=== PATIENT | female | born 1960 | race Two or more races ===

== ENCOUNTER 2018-06-05 09:02 | Emergency (ER) | payer SELFPAY ==
[~2018-06-05] VITALS: Ht 152.4 cm; Wt 92.7 kg
[2018-06-05 09:12] VITALS: BP 133/75
[2018-06-05] MEDS ORDERED: KETOROLAC TROMETH 60MG/2ML VIAL IM ONE (11:45)
[2018-06-05] MEDS ORDERED: diphenhdrAMINE HCL 25 MG CAP PO ONE (11:45)
[2018-06-05] MEDS ORDERED: ONDANSETRON ODT 4 MG TAB PO ONE (11:45)
== END 2018-06-05 13:22 | disposition home or self-care (01) ==
LOC: ER 09:02
DX: R51 Headache (principal)
CPT/HCPCS: 70450; 96372; 99284; J1885; Q0162

== ENCOUNTER 2021-04-23 10:15 | Inpatient (IN) | payer MEDICAID ==
[~2021-04-23] VITALS: Ht 165.1 cm; Wt 77.5 kg
[2021-04-23] MEDS ORDERED: AZITHROMYCIN 500MG/ 250ML 250 ML IV ONE (10:45)
[2021-04-23] MEDS ORDERED: ASCORBIC ACID 500 MG TAB PO ONE (10:45)
[2021-04-23] MEDS ORDERED: ZINC SULFATE 220mg CAP or TAB PO ONE (10:45)
[2021-04-23] MEDS ORDERED: REMDESIVIR PER PHARMACY 0 ML IV SCH ×2 (10:45→12:45)
[2021-04-23] MEDS ORDERED: methylPREDNISolone SOD SUCC 125 MG/2 ML VL IV ONE (10:45)
[2021-04-23] MEDS ORDERED: CHOLECALCIFEROL (VITD3) 2,000 UNIT CAP/TAB PO ONE (10:45)
[2021-04-23] MEDS ORDERED: ACETAMINOPHEN 325 MG TAB PO ONE (11:00)
[2021-04-23 11:10] LABS: Basophils # (auto) 0 10 ^3/uL (0-0.2); Basophils % (auto) 0.2 % (0.0-2.0); Eosinophils # (auto) 0 10 ^3/uL (0-0.8); Hematocrit 42.3 % (36.0-46.0); Hemoglobin 14.4 g/dL (12.2-16.2); Lymphocytes # (auto) 1.3 10 ^3/uL (0.4-5.4); Mean Corpuscular Volume 88.1 fL (80.0-100.0); Monocytes # (auto) 0.6 10 ^3/uL (0-1.3); Neutrophils # (auto) 7.3 10 ^3/uL (1.6-8.6); Neutrophils % (auto) 78.8 % (37.0-80.0); Nucleated Red Blood Cells % 0.1 %; Red Cell Distribution Width 13.1 % (11.8-14.3); White Blood Cell 9.2 10^3/uL (4.4-10.8)
[2021-04-23 11:21] LABS: Potassium 4.2 mmol/L (3.5-5.1)
[2021-04-23 11:33] LABS: Albumin 2.3 g/dL (3.4-5.0); BUN/Creatinine Ratio 31.3; Bilirubin, Total 0.7 mg/dL (0.2-1.0); CRP High Sensitivity 15.4 mg/dL (< 0.3); Calcium 8.1 mg/dL (8.5-10.1); Total Protein 7.6 g/dL (6.4-8.2)
[2021-04-23 12:17] LABS: Urine Bacteria FEW /hpf (None Seen); Urine Blood TRACE /uL (Negative); Urine Hyaline Cast FEW /lpf (0 - 2); Urine Mucus FEW (None Seen); Urine Specific Gravity 1.021 (1.001-1.035); Urine WBC 7 /hpf (0 - 5)
[2021-04-23] MEDS ORDERED: ATORVASTATIN 20 MG TAB PO ONE (13:15)
[2021-04-23] MEDS ORDERED: ENOXAPARIN SOD 100 MG/1 ML SYRINGE SC ONE (13:15)
[2021-04-23] MEDS ORDERED: NITROGLYCERIN 0.4 MG SL TAB SL PRN (13:15)
[2021-04-23] MEDS ORDERED: METOCLOPRAMIDE HCL 5MG/ml INJ 2ml VIAL IV PRN (13:15)
[2021-04-23] MEDS ORDERED: LORazepam 0.5 MG TAB PO PRN (13:15)
[2021-04-23] MEDS ORDERED: DEXTROSE (50%) 50ML SYRG IV PRN (13:15)
[2021-04-23] MEDS ORDERED: ALUM & MAG HYDROX-SIMETH LIQ(MAALOX) 30 ML PO PRN (13:15)
[2021-04-23] MEDS ORDERED: ACETAMINOPHEN 325 MG TAB PO PRN (13:15)
[2021-04-23] MEDS ORDERED: CEFEPIME 1 GM in SODIUM CHL 0.9% 50 ML IV ONE (13:15)
[2021-04-23] MEDS ORDERED: SODIUM CHLORIDE 0.9% 250 ML IV ONE (13:15)
[2021-04-23] MEDS ORDERED: ACETAMINOPHEN 500 MG TAB PO PRN (13:15)
[2021-04-23] MEDS ORDERED: DOCUSATE SOD 100 MG CAP PO PRN (13:15)
[2021-04-23] MEDS ORDERED: MORPHINE SULFATE INJECTION 2 MG/ML SYRG IV PRN ×2 (13:15)
[2021-04-23] MEDS ORDERED: HYDROcodone-ACET 5/325MG TAB PO PRN (13:15)
[2021-04-23] MEDS ORDERED: ALBUMIN 25% 100 ML IV ONE (13:45)
[2021-04-23 14:11] LABS: Basophils # (auto) 0 10 ^3/uL (0-0.2); Basophils % (auto) 0.1 % (0.0-2.0); Eosinophils # (auto) 0 10 ^3/uL (0-0.8); Hematocrit 42.8 % (36.0-46.0); Hemoglobin 14.8 g/dL (12.2-16.2); Lymphocytes # (auto) 1.2 10 ^3/uL (0.4-5.4); Lymphocytes % (auto) 12.7 % (10.0-50.0); Mean Corpuscular Hemoglobin 30.4 pg (28.0-32.0); Mean Corpuscular Hgb Conc. 34.7 g/dL (32.0-36.0); Mean Corpuscular Volume 87.9 fL (80.0-100.0); Monocytes # (auto) 0.5 10 ^3/uL (0-1.3); Monocytes % (auto) 5.2 % (0.0-12.0); Neutrophils # (auto) 7.9 10 ^3/uL (1.6-8.6); Nucleated Red Blood Cells % 0.1 %; Red Blood Cells 4.87 10^6/uL (4.0-5.20); White Blood Cell 9.7 10^3/uL (4.4-10.8)
[2021-04-23 14:27] VITALS: BP 102/63
[2021-04-23 14:35] LABS: Albumin 2.3 g/dL (3.4-5.0); Calcium 8.2 mg/dL (8.5-10.1); Magnesium 2.8 mg/dL (1.6-2.6); Potassium 4.2 mmol/L (3.5-5.1)
[2021-04-23 14:45] LABS: BUN/Creatinine Ratio 31.6; Bilirubin, Total 0.7 mg/dL (0.2-1.0); CRP High Sensitivity 15.4 mg/dL (< 0.3); Total Protein 7.8 g/dL (6.4-8.2)
[2021-04-23 14:46] LABS: Thyroid Stimulating Hormone 0.21 uIU/mL (0.358-3.74)
[2021-04-23] MEDS: SODIUM CHLORIDE 0.9% 1,000 ML IV SCH (15:12)
[2021-04-23] MEDS ORDERED: REMDESIVIR 200 MG in NS 210ml LOADING DOSE ADULT IV ONE (16:00)
[2021-04-23] MEDS: IVERMECTIN 3 MG TAB PO SCH (16:17)
[2021-04-23] MEDS: InsuLIN REG 1unit/0.01ml Soln (100units/ml) SC SCH ×2 (16:40→21:22)
[2021-04-23] MEDS: ACCU-CHEK COMFORT CURVE STRIP VI SCH ×2 (16:43→21:23)
[2021-04-23] MEDS: IPRATROPIUM BROMIDE HFA AER IN SCH ×2 (18:57→22:25)
[2021-04-23] MEDS: BUDESONIDE (INHALATION) 180 MCG IH IN SCH ×2 (18:57→20:42)
[2021-04-23] MEDS: CEFEPIME 1 GM in SODIUM CHL 0.9% 50 ML IV SCH (21:11)
[2021-04-23] MEDS: FAMOTIDINE (10MG/ML) 2ML VL IV SCH (21:21)
[2021-04-23] MEDS: FLORASTOR (S. BOULARDII) 250 MG CAP PO SCH (21:21)
[2021-04-23] MEDS: ALBUTEROL SULF HFA 90MCG INH 200DOSE IN PRN (21:26)
[2021-04-24] MEDS: ENOXAPARIN SOD 100 MG/1 ML SYRINGE SC SCH ×2 (05:41→18:27)
[2021-04-24] MEDS: SODIUM CHLORIDE 0.9% 1,000 ML IV SCH ×2 (05:41→22:38)
[2021-04-24] MEDS: InsuLIN REG 1unit/0.01ml Soln (100units/ml) SC SCH ×4 (05:54→22:19)
[2021-04-24] MEDS: ACCU-CHEK COMFORT CURVE STRIP VI SCH ×4 (05:59→22:16)
[2021-04-24] MEDS: CEFEPIME 1 GM in SODIUM CHL 0.9% 50 ML IV SCH (06:00)
[2021-04-24] MEDS: IPRATROPIUM BROMIDE HFA AER IN SCH ×2 (06:00→06:20)
[2021-04-24 06:20] VITALS: BP 115/56
[2021-04-24] MEDS: BUDESONIDE (INHALATION) 180 MCG IH IN SCH ×2 (06:20→22:56)
[2021-04-24 09:15] LABS: Urine Bacteria NONE SEEN /hpf (None Seen); Urine Blood 2+ /uL (Negative); Urine Mucus FEW (None Seen); Urine Specific Gravity 1.026 (1.001-1.035); Urine WBC 13 /hpf (0 - 5)
[2021-04-24 09:30] LABS: Amphetamine Screen, Urine NEGATIVE (NEGATIVE); Barbiturate Scree,Urine NEGATIVE (NEGATIVE); Benzodiazephine Screen, Urine NEGATIVE (NEGATIVE); Cannabinoid Screen, Urine NEGATIVE (NEGATIVE); Cocaine Screen, Urine NEGATIVE (NEGATIVE); Opiate Scree,Urine NEGATIVE (NEGATIVE); Phencyclidine Screen, Urine NEGATIVE (NEGATIVE)
[2021-04-24 09:41] LABS: Basophils # (auto) 0 10 ^3/uL (0-0.2); Basophils % (auto) 0.1 % (0.0-2.0); Eosinophils # (auto) 0 10 ^3/uL (0-0.8); Hematocrit 40.5 % (36.0-46.0); Hemoglobin 13.5 g/dL (12.2-16.2); Lymphocytes # (auto) 1.4 10 ^3/uL (0.4-5.4); Lymphocytes % (auto) 11.2 % (10.0-50.0); Mean Corpuscular Hemoglobin 29.6 pg (28.0-32.0); Mean Corpuscular Hgb Conc. 33.4 g/dL (32.0-36.0); Mean Corpuscular Volume 88.8 fL (80.0-100.0); Monocytes % (auto) 7.6 % (0.0-12.0); Neutrophils # (auto) 10.4 10 ^3/uL (1.6-8.6); Neutrophils % (auto) 81.1 % (37.0-80.0); Nucleated Red Blood Cells % 0.1 %; Red Blood Cells 4.56 10^6/uL (4.0-5.20); White Blood Cell 12.8 10^3/uL (4.4-10.8)
[2021-04-24] MEDS: FUROSEMIDE 20 MG/2 ML VIAL IV SCH ×2 (09:49→18:27)
[2021-04-24 09:55] LABS: Albumin 2.4 g/dL (3.4-5.0); Calcium 8.1 mg/dL (8.5-10.1); Potassium 3.8 mmol/L (3.5-5.1); Uric Acid 3.7 mg/dL (2.6-6.0)
[2021-04-24 10:01] LABS: BUN/Creatinine Ratio 43.8; Bilirubin, Total 0.7 mg/dL (0.2-1.0); Total Protein 7.1 g/dL (6.4-8.2)
[2021-04-24] MEDS: ALBUTEROL SULF HFA 90MCG INH 200DOSE IN PRN ×2 (10:15→22:56)
[2021-04-24] MEDS: DexAMETHasone SOD PHOS 10MG/1ML VIAL INJ IV SCH (10:40)
[2021-04-24] MEDS: ZINC SULFATE 220mg CAP or TAB PO SCH (10:41)
[2021-04-24] MEDS: ASPirin 81 mg TAB PO SCH (10:41)
[2021-04-24] MEDS: FAMOTIDINE (10MG/ML) 2ML VL IV SCH ×2 (10:41→22:15)
[2021-04-24] MEDS: CHOLECALCIFEROL (VITD3) 2,000 UNIT CAP/TAB PO SCH (10:42)
[2021-04-24] MEDS: ASCORBIC ACID 1,000 MG TAB PO SCH (10:42)
[2021-04-24] MEDS: IVERMECTIN 3 MG TAB PO SCH (10:42)
[2021-04-24] MEDS: FLORASTOR (S. BOULARDII) 250 MG CAP PO SCH ×2 (10:42→22:16)
[2021-04-24 11:00] VITALS: BP 109/68
[2021-04-24] MEDS ORDERED: cefTRIAXone 1GM/50ML D5W 50 ML IV ONE (11:45)
[2021-04-24] MEDS ORDERED: AZITHROMYCIN 500MG/ 250ML 250 ML IV ONE (13:00)
[2021-04-24] MEDS ORDERED: IPRATROPIUM BROMIDE HFA AER IN PRN (15:15)
[2021-04-24] MEDS: REMDESIVIR 100mg 100 MG in SODIUM CHL 0.9% 230 ML IV SCH (15:15)
[2021-04-24 18:05] VITALS: BP 122/58
[2021-04-24 22:10] VITALS: BP 127/63
[2021-04-24] MEDS: ATORVASTATIN 20 MG TAB PO SCH (22:16)
[2021-04-25 01:43] VITALS: BP 133/63
[2021-04-25] MEDS: FUROSEMIDE 20 MG/2 ML VIAL IV SCH ×2 (06:17→18:01)
[2021-04-25] MEDS: ENOXAPARIN SOD 100 MG/1 ML SYRINGE SC SCH ×2 (06:17→18:01)
[2021-04-25 06:25] VITALS: BP 140/56
[2021-04-25] MEDS: ALBUTEROL SULF HFA 90MCG INH 200DOSE IN PRN (07:07)
[2021-04-25] MEDS: BUDESONIDE (INHALATION) 180 MCG IH IN SCH (07:08)
[2021-04-25] MEDS: ACCU-CHEK COMFORT CURVE STRIP VI SCH ×4 (07:35→21:54)
[2021-04-25] MEDS: InsuLIN REG 1unit/0.01ml Soln (100units/ml) SC SCH ×4 (07:37→21:55)
[2021-04-25] MEDS: cefTRIAXone 1GM/50ML D5W 50 ML IV SCH (07:53)
[2021-04-25] MEDS: DexAMETHasone SOD PHOS 10MG/1ML VIAL INJ IV SCH (07:54)
[2021-04-25] MEDS: CHOLECALCIFEROL (VITD3) 2,000 UNIT CAP/TAB PO SCH (07:54)
[2021-04-25] MEDS: ZINC SULFATE 220mg CAP or TAB PO SCH (07:54)
[2021-04-25] MEDS: ASCORBIC ACID 1,000 MG TAB PO SCH (07:54)
[2021-04-25] MEDS: ASPirin 81 mg TAB PO SCH (07:54)
[2021-04-25] MEDS: FAMOTIDINE (10MG/ML) 2ML VL IV SCH ×2 (07:55→21:54)
[2021-04-25] MEDS: IVERMECTIN 3 MG TAB PO SCH (07:55)
[2021-04-25] MEDS: FLORASTOR (S. BOULARDII) 250 MG CAP PO SCH ×2 (07:56→10:59)
[2021-04-25 10:13] VITALS: BP 149/71
[2021-04-25] MEDS: AZITHROMYCIN 500MG/ 250ML 250 ML IV SCH (10:59)
[2021-04-25 13:57] VITALS: BP 135/64
[2021-04-25] MEDS: SODIUM CHLORIDE 0.9% 1,000 ML IV SCH (15:00)
[2021-04-25] MEDS: REMDESIVIR 100mg 100 MG in SODIUM CHL 0.9% 230 ML IV SCH (15:03)
[2021-04-25 18:00] VITALS: BP 149/67
[2021-04-25] MEDS: ATORVASTATIN 20 MG TAB PO SCH (21:54)
[2021-04-25 22:23] VITALS: BP 150/76
[2021-04-26] VITALS (7 sets, daily range): BP systolic 135–140; BP diastolic 58–70
[2021-04-26] MEDS: BUDESONIDE (INHALATION) 180 MCG IH IN SCH ×3 (00:57→07:43)
[2021-04-26] MEDS: FUROSEMIDE 20 MG/2 ML VIAL IV SCH ×2 (06:32→18:39)
[2021-04-26] MEDS: ACCU-CHEK COMFORT CURVE STRIP VI SCH ×4 (06:32→21:36)
[2021-04-26] MEDS: ENOXAPARIN SOD 100 MG/1 ML SYRINGE SC SCH ×2 (06:32→18:39)
[2021-04-26] MEDS: InsuLIN REG 1unit/0.01ml Soln (100units/ml) SC SCH ×4 (06:33→21:53)
[2021-04-26 06:59] LABS: Calcium 7.5 mg/dL (8.5-10.1)
[2021-04-26 07:06] LABS: Albumin 2.1 g/dL (3.4-5.0); BUN/Creatinine Ratio 38.6; Bilirubin, Total 0.9 mg/dL (0.2-1.0); Total Protein 6.3 g/dL (6.4-8.2)
[2021-04-26] MEDS: ALBUTEROL SULF HFA 90MCG INH 200DOSE IN PRN ×3 (07:29→19:10)
[2021-04-26] MEDS: SODIUM CHLORIDE 0.9% 1,000 ML IV SCH (08:24)
[2021-04-26] MEDS: cefTRIAXone 1GM/50ML D5W 50 ML IV SCH (08:45)
[2021-04-26] MEDS: CHOLECALCIFEROL (VITD3) 2,000 UNIT CAP/TAB PO SCH (10:54)
[2021-04-26] MEDS: IVERMECTIN 3 MG TAB PO SCH (10:54)
[2021-04-26] MEDS: ASPirin 81 mg TAB PO SCH (10:54)
[2021-04-26] MEDS: FLORASTOR (S. BOULARDII) 250 MG CAP PO SCH ×2 (10:54→21:52)
[2021-04-26] MEDS: AZITHROMYCIN 500MG/ 250ML 250 ML IV SCH (10:54)
[2021-04-26] MEDS: DexAMETHasone SOD PHOS 10MG/1ML VIAL INJ IV SCH (10:54)
[2021-04-26] MEDS: ASCORBIC ACID 1,000 MG TAB PO SCH (10:54)
[2021-04-26] MEDS: FAMOTIDINE (10MG/ML) 2ML VL IV SCH ×2 (10:54→21:52)
[2021-04-26] MEDS: ZINC SULFATE 220mg CAP or TAB PO SCH (10:54)
[2021-04-26] MEDS: REMDESIVIR 100mg 100 MG in SODIUM CHL 0.9% 230 ML IV SCH (15:38)
[2021-04-26] MEDS: ATORVASTATIN 20 MG TAB PO SCH (21:53)
[2021-04-27] MEDS: SODIUM CHLORIDE 0.9% 1,000 ML IV SCH (00:43)
[2021-04-27 02:15] VITALS: BP 142/68
[2021-04-27] MEDS: FUROSEMIDE 20 MG/2 ML VIAL IV SCH ×2 (06:01→17:26)
[2021-04-27] MEDS: ENOXAPARIN SOD 100 MG/1 ML SYRINGE SC SCH ×2 (06:01→17:26)
[2021-04-27] MEDS: BUDESONIDE (INHALATION) 180 MCG IH IN SCH ×2 (06:25→22:40)
[2021-04-27] MEDS: ALBUTEROL SULF HFA 90MCG INH 200DOSE IN PRN ×2 (06:25→23:20)
[2021-04-27] MEDS: InsuLIN REG 1unit/0.01ml Soln (100units/ml) SC SCH ×4 (06:35→22:18)
[2021-04-27] MEDS: ACCU-CHEK COMFORT CURVE STRIP VI SCH ×4 (06:35→22:11)
[2021-04-27 07:15] VITALS: BP 126/64
[2021-04-27 07:42] LABS: Basophils # (auto) 0 10 ^3/uL (0-0.2); Basophils % (auto) 0.3 % (0.0-2.0); Eosinophils # (auto) 0 10 ^3/uL (0-0.8); Hemoglobin 14.5 g/dL (12.2-16.2); Lymphocytes # (auto) 1.2 10 ^3/uL (0.4-5.4); Mean Corpuscular Hemoglobin 30.3 pg (28.0-32.0); Mean Corpuscular Hgb Conc. 34.5 g/dL (32.0-36.0); Mean Corpuscular Volume 87.7 fL (80.0-100.0); Monocytes # (auto) 0.7 10 ^3/uL (0-1.3); Neutrophils # (auto) 15.1 10 ^3/uL (1.6-8.6); Neutrophils % (auto) 88.7 % (37.0-80.0); Red Blood Cells 4.79 10^6/uL (4.0-5.20); Red Cell Distribution Width 13.1 % (11.8-14.3)
[2021-04-27 08:30] LABS: Albumin 2.3 g/dL (3.4-5.0); Calcium 8.2 mg/dL (8.5-10.1); Potassium 3.6 mmol/L (3.5-5.1)
[2021-04-27 08:35] LABS: BUN/Creatinine Ratio 40.5; Bilirubin, Total 1.2 mg/dL (0.2-1.0); Total Protein 7.1 g/dL (6.4-8.2)
[2021-04-27] MEDS: cefTRIAXone 1GM/50ML D5W 50 ML IV SCH (08:44)
[2021-04-27] MEDS: FLORASTOR (S. BOULARDII) 250 MG CAP PO SCH ×2 (09:27→22:25)
[2021-04-27] MEDS: IVERMECTIN 3 MG TAB PO SCH (09:27)
[2021-04-27] MEDS: ZINC SULFATE 220mg CAP or TAB PO SCH (09:27)
[2021-04-27] MEDS: FAMOTIDINE (10MG/ML) 2ML VL IV SCH ×2 (09:27→22:10)
[2021-04-27] MEDS: DexAMETHasone SOD PHOS 10MG/1ML VIAL INJ IV SCH (09:27)
[2021-04-27] MEDS: ASPirin 81 mg TAB PO SCH (09:27)
[2021-04-27] MEDS: ASCORBIC ACID 1,000 MG TAB PO SCH (09:28)
[2021-04-27] MEDS: CHOLECALCIFEROL (VITD3) 2,000 UNIT CAP/TAB PO SCH (09:28)
[2021-04-27 09:50] VITALS: BP 114/63
[2021-04-27] MEDS: AZITHROMYCIN 500MG/ 250ML 250 ML IV SCH (10:45)
[2021-04-27] MEDS: SALINE 0.65 % NASAL SPRAY 45ML BOTTLE EACHNOSTRI SCH ×3 (13:03→22:10)
[2021-04-27] MEDS: Glucerna Carbsteady SHAKE Vanilla 8oz PO SCH ×2 (13:24→18:58)
[2021-04-27 14:30] VITALS: BP 137/66
[2021-04-27] MEDS: REMDESIVIR 100mg 100 MG in SODIUM CHL 0.9% 230 ML IV SCH (14:45)
[2021-04-27 18:55] VITALS: BP 119/60
[2021-04-27] MEDS: ATORVASTATIN 20 MG TAB PO SCH (22:10)
[2021-04-28] VITALS (7 sets, daily range): BP systolic 102–139; BP diastolic 52–81
[2021-04-28] MEDS: SALINE 0.65 % NASAL SPRAY 45ML BOTTLE EACHNOSTRI SCH ×4 (05:45→22:52)
[2021-04-28] MEDS: ENOXAPARIN SOD 100 MG/1 ML SYRINGE SC SCH ×2 (05:46→18:55)
[2021-04-28] MEDS: FUROSEMIDE 20 MG/2 ML VIAL IV SCH ×2 (05:48→18:00)
[2021-04-28] MEDS: ACCU-CHEK COMFORT CURVE STRIP VI SCH ×4 (06:53→22:51)
[2021-04-28] MEDS: InsuLIN REG 1unit/0.01ml Soln (100units/ml) SC SCH ×4 (06:53→22:51)
[2021-04-28] MEDS: BUDESONIDE (INHALATION) 180 MCG IH IN SCH (07:17)
[2021-04-28] MEDS: Glucerna Carbsteady SHAKE Vanilla 8oz PO SCH ×3 (09:30→18:00)
[2021-04-28] MEDS: cefTRIAXone 1GM/50ML D5W 50 ML IV SCH (10:45)
[2021-04-28] MEDS: AZITHROMYCIN 500MG/ 250ML 250 ML IV SCH (10:55)
[2021-04-28] MEDS: ASPirin 81 mg TAB PO SCH (11:06)
[2021-04-28] MEDS: FAMOTIDINE (10MG/ML) 2ML VL IV SCH ×2 (11:06→22:52)
[2021-04-28] MEDS: DexAMETHasone SOD PHOS 10MG/1ML VIAL INJ IV SCH (11:06)
[2021-04-28] MEDS: FLORASTOR (S. BOULARDII) 250 MG CAP PO SCH ×2 (11:07→22:51)
[2021-04-28] MEDS: ZINC SULFATE 220mg CAP or TAB PO SCH (11:07)
[2021-04-28] MEDS: CHOLECALCIFEROL (VITD3) 2,000 UNIT CAP/TAB PO SCH (11:07)
[2021-04-28] MEDS: ASCORBIC ACID 1,000 MG TAB PO SCH (11:07)
[2021-04-28] MEDS: ALBUTEROL SULF HFA 90MCG INH 200DOSE IN PRN (12:31)
[2021-04-28] MEDS ORDERED: ETOMIDATE (2MG/ML) 20ML VIAL IV ONE (15:30)
[2021-04-28] MEDS ORDERED: ROCURONIUM 10MG/ML 10ML VIAL IV ONE (15:30)
[2021-04-28] MEDS: MIDAZOLAM DRIP 50 mg/50mL 50 ML IV SCH (15:58)
[2021-04-28] MEDS ORDERED: fentaNYL Drip 2500mCg/250mlNS 250 ML IV ONE (17:51)
[2021-04-28] MEDS: fentaNYL Drip 2500mCg/250mlNS 250 ML IV SCH (17:55)
[2021-04-28] MEDS: NOREPINEPHRINE 8 MG/250ML KIT 250 ML IV SCH ×2 (18:15→19:09)
[2021-04-28] MEDS: ATORVASTATIN 20 MG TAB PO SCH (22:51)
[2021-04-29] VITALS (89 sets, daily range): BP systolic 73–149; BP diastolic 36–70
[2021-04-29] MEDS: PROPOFOL 100 ML IV SCH (04:00)
[2021-04-29] MEDS ORDERED: PROPOFOL 100 ML IV ONE (04:23)
[2021-04-29] MEDS: ROCURONIUM BROMIDE 1,000 MG in D5W 5% 150 ML IV SCH (05:30)
[2021-04-29 05:34] LABS: INR 1.3 (0.9-1.15); Partial Thromboplastin Time 33.5 sec (23.6-33.0)
[2021-04-29 05:42] LABS: Calcium 8.2 mg/dL (8.5-10.1); Potassium 4.2 mmol/L (3.5-5.1)
[2021-04-29 05:46] LABS: BUN/Creatinine Ratio 63.8; Total Protein 6.9 g/dL (6.4-8.2)
[2021-04-29 05:58] LABS: Hematocrit 40.6 % (36.0-46.0); Hemoglobin 14.1 g/dL (12.2-16.2); Mean Corpuscular Hgb Conc. 34.6 g/dL (32.0-36.0); Mean Corpuscular Volume 89.5 fL (80.0-100.0); Red Blood Cells 4.53 10^6/uL (4.0-5.20); White Blood Cell 16.2 10^3/uL (4.4-10.8)
[2021-04-29] MEDS: ENOXAPARIN SOD 100 MG/1 ML SYRINGE SC SCH ×2 (06:00→18:08)
[2021-04-29] MEDS: FUROSEMIDE 20 MG/2 ML VIAL IV SCH ×2 (06:00→18:08)
[2021-04-29] MEDS: SALINE 0.65 % NASAL SPRAY 45ML BOTTLE EACHNOSTRI SCH ×4 (06:00→22:00)
[2021-04-29] MEDS: InsuLIN REG 1unit/0.01ml Soln (100units/ml) SC SCH ×4 (06:07→22:00)
[2021-04-29] MEDS: ACCU-CHEK COMFORT CURVE STRIP VI SCH ×4 (06:07→22:00)
[2021-04-29 06:11] LABS: Basophils % (manual) 0 (0.0-2.0); Blast Cells 0; Eosinophils % (manual) 0 (0-7); Metamyelocytes % 0; Myelocytes % 0; Promyelocytes % 0; Reactive Lymphocytes 0
[2021-04-29] MEDS: Glucerna Carbsteady SHAKE Vanilla 8oz PO SCH ×3 (07:45→17:01)
[2021-04-29 08:47] LABS: Band Neutrophils % (manual) 5; Lymphocytes % (manual) 1 (10.0-50.0); Monocytes % (manual) 5 (0-12)
[2021-04-29] MEDS: cefTRIAXone 1GM/50ML D5W 50 ML IV SCH (09:10)
[2021-04-29] MEDS: ZINC SULFATE 220mg CAP or TAB PO SCH (10:00)
[2021-04-29] MEDS: FAMOTIDINE (10MG/ML) 2ML VL IV SCH ×2 (10:00→22:00)
[2021-04-29] MEDS: FLORASTOR (S. BOULARDII) 250 MG CAP PO SCH ×2 (10:00→22:00)
[2021-04-29] MEDS: CHOLECALCIFEROL (VITD3) 2,000 UNIT CAP/TAB PO SCH (10:00)
[2021-04-29] MEDS: DexAMETHasone SOD PHOS 10MG/1ML VIAL INJ IV SCH (10:00)
[2021-04-29] MEDS: ASPirin 81 mg TAB PO SCH (10:00)
[2021-04-29] MEDS: AZITHROMYCIN 500MG/ 250ML 250 ML IV SCH (10:00)
[2021-04-29] MEDS: ASCORBIC ACID 1,000 MG TAB PO SCH (10:00)
[2021-04-29] MEDS ORDERED: VANCOMYCIN PER PHARMACY 0 MG IV SCH (14:30)
[2021-04-29] MEDS: VANCOMYCIN 1GM/250ML 250 ML IV SCH (15:12)
[2021-04-29] MEDS: MIDAZOLAM DRIP 50 mg/50mL 50 ML IV SCH (15:30)
[2021-04-29] MEDS ORDERED: LIDOCAINE 1% (LOCAL ANESTH.) PF 5ml SDV ID ONE (16:00)
[2021-04-29] MEDS: PIPERACILLIN-TAZO 4.5GM 100 ML IV SCH (16:00)
[2021-04-29] MEDS: fentaNYL Drip 2500mCg/250mlNS 250 ML IV SCH (18:09)
[2021-04-29] MEDS: NOREPINEPHRINE 8 MG/250ML KIT 250 ML IV SCH (18:09)
[2021-04-29] MEDS: ATORVASTATIN 20 MG TAB PO SCH (22:00)
[2021-04-29] MEDS: SODIUM CHLOR 0.9% PF (SALINE LOCK) 10ML VIAL/SYR IV SCH (22:00)
[2021-04-30] VITALS (98 sets, daily range): BP systolic 92–146; BP diastolic 49–67
[2021-04-30] MEDS: VANCOMYCIN 1GM/250ML 250 ML IV SCH ×2 (03:00→15:20)
[2021-04-30] MEDS: PROPOFOL 100 ML IV SCH ×2 (04:15→21:10)
[2021-04-30] MEDS: ROCURONIUM BROMIDE 1,000 MG in D5W 5% 150 ML IV SCH (04:33)
[2021-04-30 04:57] LABS: Basophils # (auto) 0 10 ^3/uL (0-0.2); Basophils % (auto) 0.2 % (0.0-2.0); Eosinophils # (auto) 0 10 ^3/uL (0-0.8); Hematocrit 41.5 % (36.0-46.0); Hemoglobin 13.9 g/dL (12.2-16.2); Lymphocytes # (auto) 0.5 10 ^3/uL (0.4-5.4); Lymphocytes % (auto) 3.8 % (10.0-50.0); Mean Corpuscular Hemoglobin 29.8 pg (28.0-32.0); Mean Corpuscular Hgb Conc. 33.5 g/dL (32.0-36.0); Mean Corpuscular Volume 89.1 fL (80.0-100.0); Monocytes # (auto) 0.4 10 ^3/uL (0-1.3); Monocytes % (auto) 2.7 % (0.0-12.0); Neutrophils # (auto) 12.1 10 ^3/uL (1.6-8.6); Neutrophils % (auto) 93.3 % (37.0-80.0); Red Blood Cells 4.66 10^6/uL (4.0-5.20); Red Cell Distribution Width 13.3 % (11.8-14.3)
[2021-04-30 05:18] LABS: Potassium 4.5 mmol/L (3.5-5.1)
[2021-04-30 05:29] LABS: BUN/Creatinine Ratio 37.9; Bilirubin, Total 0.7 mg/dL (0.2-1.0); CRP High Sensitivity 6.3 mg/dL (< 0.3); Calcium 8.4 mg/dL (8.5-10.1)
[2021-04-30] MEDS: FUROSEMIDE 20 MG/2 ML VIAL IV SCH ×2 (05:47→17:06)
[2021-04-30] MEDS: SALINE 0.65 % NASAL SPRAY 45ML BOTTLE EACHNOSTRI SCH ×4 (05:47→22:24)
[2021-04-30] MEDS: ENOXAPARIN SOD 100 MG/1 ML SYRINGE SC SCH ×2 (05:47→17:06)
[2021-04-30] MEDS: InsuLIN REG 1unit/0.01ml Soln (100units/ml) SC SCH ×4 (05:54→22:25)
[2021-04-30] MEDS: ACCU-CHEK COMFORT CURVE STRIP VI SCH ×4 (05:55→22:26)
[2021-04-30] MEDS: PIPERACILLIN-TAZO 4.5GM 100 ML IV SCH ×3 (07:40→16:00)
[2021-04-30] MEDS: Glucerna Carbsteady SHAKE Vanilla 8oz PO SCH ×3 (08:00→17:06)
[2021-04-30] MEDS: DexAMETHasone SOD PHOS 10MG/1ML VIAL INJ IV SCH (09:37)
[2021-04-30] MEDS: CHOLECALCIFEROL (VITD3) 2,000 UNIT CAP/TAB PO SCH (09:38)
[2021-04-30] MEDS: ASCORBIC ACID 1,000 MG TAB PO SCH (09:38)
[2021-04-30] MEDS: ASPirin 81 mg TAB PO SCH (09:38)
[2021-04-30] MEDS: ZINC SULFATE 220mg CAP or TAB PO SCH (09:38)
[2021-04-30] MEDS: FLORASTOR (S. BOULARDII) 250 MG CAP PO SCH ×2 (09:38→22:24)
[2021-04-30] MEDS: FAMOTIDINE (10MG/ML) 2ML VL IV SCH ×2 (09:38→22:24)
[2021-04-30] MEDS: SODIUM CHLOR 0.9% PF (SALINE LOCK) 10ML VIAL/SYR IV SCH ×2 (09:38→22:24)
[2021-04-30] MEDS: fentaNYL Drip 2500mCg/250mlNS 250 ML IV SCH (15:20)
[2021-04-30] MEDS: MIDAZOLAM DRIP 50 mg/50mL 50 ML IV SCH ×2 (15:30→20:30)
[2021-04-30] MEDS: NOREPINEPHRINE 8 MG/250ML KIT 250 ML IV SCH (17:06)
[2021-04-30] MEDS: ATORVASTATIN 20 MG TAB PO SCH (22:24)
[2021-05-01] VITALS (103 sets, daily range): BP systolic 86–147; BP diastolic 44–64
[2021-05-01] MEDS: VANCOMYCIN 1GM/250ML 250 ML IV SCH ×3 (03:00→22:45)
[2021-05-01] MEDS: fentaNYL Drip 2500mCg/250mlNS 250 ML IV SCH ×2 (04:56→18:14)
[2021-05-01] MEDS: ROCURONIUM BROMIDE 1,000 MG in D5W 5% 150 ML IV SCH (05:06)
[2021-05-01] MEDS: FUROSEMIDE 20 MG/2 ML VIAL IV SCH ×2 (06:00→18:14)
[2021-05-01] MEDS: SALINE 0.65 % NASAL SPRAY 45ML BOTTLE EACHNOSTRI SCH (06:00)
[2021-05-01] MEDS: ENOXAPARIN SOD 100 MG/1 ML SYRINGE SC SCH ×2 (06:00→18:14)
[2021-05-01] MEDS: ACCU-CHEK COMFORT CURVE STRIP VI SCH ×4 (07:00→22:47)
[2021-05-01] MEDS: InsuLIN REG 1unit/0.01ml Soln (100units/ml) SC SCH ×4 (07:00→23:17)
[2021-05-01] MEDS: Glucerna Carbsteady SHAKE Vanilla 8oz PO SCH (08:00)
[2021-05-01] MEDS: PIPERACILLIN-TAZO 4.5GM 100 ML IV SCH ×3 (08:10→16:27)
[2021-05-01] MEDS: ASPirin 81 mg TAB PO SCH (10:00)
[2021-05-01] MEDS: FLORASTOR (S. BOULARDII) 250 MG CAP PO SCH ×2 (10:00→22:46)
[2021-05-01] MEDS: ASCORBIC ACID 1,000 MG TAB PO SCH (10:00)
[2021-05-01] MEDS: SODIUM CHLOR 0.9% PF (SALINE LOCK) 10ML VIAL/SYR IV SCH ×2 (10:00→22:46)
[2021-05-01] MEDS: DexAMETHasone SOD PHOS 10MG/1ML VIAL INJ IV SCH (10:00)
[2021-05-01] MEDS: FAMOTIDINE (10MG/ML) 2ML VL IV SCH ×2 (10:00→22:45)
[2021-05-01] MEDS: CHOLECALCIFEROL (VITD3) 2,000 UNIT CAP/TAB PO SCH (10:00)
[2021-05-01] MEDS: ZINC SULFATE 220mg CAP or TAB PO SCH (10:00)
[2021-05-01] MEDS: NOREPINEPHRINE 8 MG/250ML KIT 250 ML IV SCH (18:15)
[2021-05-01] MEDS: ATORVASTATIN 20 MG TAB PO SCH (22:47)
[2021-05-01] MEDS: MIDAZOLAM DRIP 50 mg/50mL 50 ML IV SCH (22:51)
[2021-05-02] VITALS (105 sets, daily range): BP systolic 86–147; BP diastolic 45–73
[2021-05-02] MEDS: MIDAZOLAM DRIP 50 mg/50mL 50 ML IV SCH ×3 (02:39→22:07)
[2021-05-02] MEDS: PROPOFOL 100 ML IV SCH (04:15)
[2021-05-02] MEDS: ROCURONIUM BROMIDE 1,000 MG in D5W 5% 150 ML IV SCH (04:17)
[2021-05-02 05:27] LABS: Basophils # (auto) 0 10 ^3/uL (0-0.2); Basophils % (auto) 0.1 % (0.0-2.0); Eosinophils # (auto) 0 10 ^3/uL (0-0.8); Hematocrit 39.6 % (36.0-46.0); Hemoglobin 13.3 g/dL (12.2-16.2); Lymphocytes # (auto) 0.4 10 ^3/uL (0.4-5.4); Lymphocytes % (auto) 4.7 % (10.0-50.0); Mean Corpuscular Hemoglobin 29.8 pg (28.0-32.0); Mean Corpuscular Hgb Conc. 33.5 g/dL (32.0-36.0); Mean Corpuscular Volume 88.9 fL (80.0-100.0); Monocytes # (auto) 0.3 10 ^3/uL (0-1.3); Monocytes % (auto) 3.6 % (0.0-12.0); Neutrophils # (auto) 8.4 10 ^3/uL (1.6-8.6); Neutrophils % (auto) 91.6 % (37.0-80.0); Red Blood Cells 4.45 10^6/uL (4.0-5.20); Red Cell Distribution Width 12.7 % (11.8-14.3); White Blood Cell 9.1 10^3/uL (4.4-10.8)
[2021-05-02] MEDS: ENOXAPARIN SOD 100 MG/1 ML SYRINGE SC SCH ×2 (05:47→17:44)
[2021-05-02] MEDS: FUROSEMIDE 20 MG/2 ML VIAL IV SCH ×2 (05:47→17:44)
[2021-05-02 05:51] LABS: Albumin 1.7 g/dL (3.4-5.0); BUN/Creatinine Ratio 44.2; Calcium 8.2 mg/dL (8.5-10.1)
[2021-05-02 05:52] LABS: Bilirubin, Total 0.6 mg/dL (0.2-1.0); Total Protein 6.5 g/dL (6.4-8.2)
[2021-05-02] MEDS: ACCU-CHEK COMFORT CURVE STRIP VI SCH ×4 (06:07→20:57)
[2021-05-02] MEDS: fentaNYL Drip 2500mCg/250mlNS 250 ML IV SCH ×2 (06:07→19:30)
[2021-05-02] MEDS: InsuLIN REG 1unit/0.01ml Soln (100units/ml) SC SCH ×4 (06:38→22:15)
[2021-05-02] MEDS: PIPERACILLIN-TAZO 4.5GM 100 ML IV SCH ×4 (09:09→23:56)
[2021-05-02] MEDS: VANCOMYCIN 1GM/250ML 250 ML IV SCH ×2 (09:10→17:43)
[2021-05-02] MEDS: FAMOTIDINE (10MG/ML) 2ML VL IV SCH ×2 (10:59→20:56)
[2021-05-02] MEDS: FLORASTOR (S. BOULARDII) 250 MG CAP PO SCH ×2 (10:59→20:57)
[2021-05-02] MEDS: SODIUM CHLOR 0.9% PF (SALINE LOCK) 10ML VIAL/SYR IV SCH ×2 (10:59→20:57)
[2021-05-02] MEDS: ASPirin 81 mg TAB PO SCH (10:59)
[2021-05-02] MEDS: DexAMETHasone SOD PHOS 10MG/1ML VIAL INJ IV SCH (10:59)
[2021-05-02] MEDS: ZINC SULFATE 220mg CAP or TAB PO SCH (10:59)
[2021-05-02] MEDS: ASCORBIC ACID 1,000 MG TAB PO SCH (11:00)
[2021-05-02] MEDS: CHOLECALCIFEROL (VITD3) 2,000 UNIT CAP/TAB PO SCH (11:00)
[2021-05-02] MEDS: NOREPINEPHRINE 8 MG/250ML KIT 250 ML IV SCH (18:15)
[2021-05-02] MEDS: ATORVASTATIN 20 MG TAB PO SCH (20:57)
[2021-05-03] VITALS (106 sets, daily range): BP systolic 90–146; BP diastolic 38–64
[2021-05-03] MEDS: MIDAZOLAM DRIP 50 mg/50mL 50 ML IV SCH ×5 (00:04→17:19)
[2021-05-03] MEDS: ROCURONIUM BROMIDE 1,000 MG in D5W 5% 150 ML IV SCH (04:42)
[2021-05-03] MEDS: VANCOMYCIN 1GM/250ML 250 ML IV SCH ×2 (04:58→16:13)
[2021-05-03] MEDS: fentaNYL Drip 2500mCg/250mlNS 250 ML IV SCH ×2 (04:58→18:30)
[2021-05-03] MEDS: ENOXAPARIN SOD 100 MG/1 ML SYRINGE SC SCH ×2 (06:45→18:15)
[2021-05-03] MEDS: FUROSEMIDE 20 MG/2 ML VIAL IV SCH ×2 (06:45→18:15)
[2021-05-03] MEDS: ACCU-CHEK COMFORT CURVE STRIP VI SCH ×4 (06:46→22:00)
[2021-05-03] MEDS: InsuLIN REG 1unit/0.01ml Soln (100units/ml) SC SCH ×3 (06:46→17:03)
[2021-05-03 06:53] LABS: Basophils # (auto) 0 10 ^3/uL (0-0.2); Basophils % (auto) 0.3 % (0.0-2.0); Eosinophils # (auto) 0 10 ^3/uL (0-0.8); Eosinophils % (auto) 0.1 % (0.0-7.0); Hemoglobin 12.1 g/dL (12.2-16.2); Lymphocytes # (auto) 0.5 10 ^3/uL (0.4-5.4); Lymphocytes % (auto) 6.8 % (10.0-50.0); Mean Corpuscular Hemoglobin 30.9 pg (28.0-32.0); Mean Corpuscular Hgb Conc. 34.6 g/dL (32.0-36.0); Mean Corpuscular Volume 89.3 fL (80.0-100.0); Monocytes # (auto) 0.3 10 ^3/uL (0-1.3); Monocytes % (auto) 3.9 % (0.0-12.0); Neutrophils # (auto) 6.3 10 ^3/uL (1.6-8.6); Neutrophils % (auto) 88.9 % (37.0-80.0); Red Blood Cells 3.92 10^6/uL (4.0-5.20); Red Cell Distribution Width 12.8 % (11.8-14.3); White Blood Cell 7.1 10^3/uL (4.4-10.8)
[2021-05-03 07:08] LABS: Potassium 3.9 mmol/L (3.5-5.1)
[2021-05-03 07:18] LABS: Albumin 1.7 g/dL (3.4-5.0); BUN/Creatinine Ratio 47.4; Bilirubin, Total 0.7 mg/dL (0.2-1.0); Total Protein 6.2 g/dL (6.4-8.2)
[2021-05-03] MEDS: PROPOFOL 100 ML IV SCH (07:21)
[2021-05-03] MEDS: PIPERACILLIN-TAZO 4.5GM 100 ML IV SCH ×2 (08:38→16:13)
[2021-05-03] MEDS: CHOLECALCIFEROL (VITD3) 2,000 UNIT CAP/TAB PO SCH (10:10)
[2021-05-03] MEDS: ASPirin 81 mg TAB PO SCH (10:10)
[2021-05-03] MEDS: ASCORBIC ACID 1,000 MG TAB PO SCH (10:10)
[2021-05-03] MEDS: ZINC SULFATE 220mg CAP or TAB PO SCH (10:11)
[2021-05-03] MEDS: FLORASTOR (S. BOULARDII) 250 MG CAP PO SCH ×2 (10:11→22:00)
[2021-05-03] MEDS: FAMOTIDINE (10MG/ML) 2ML VL IV SCH ×2 (10:11→22:00)
[2021-05-03] MEDS: SODIUM CHLOR 0.9% PF (SALINE LOCK) 10ML VIAL/SYR IV SCH ×2 (10:11→22:00)
[2021-05-03] MEDS: DexAMETHasone SOD PHOS 10MG/1ML VIAL INJ IV SCH (10:11)
[2021-05-03] MEDS: NOREPINEPHRINE 8 MG/250ML KIT 250 ML IV SCH (18:15)
[2021-05-03] MEDS: ATORVASTATIN 20 MG TAB PO SCH (22:00)
[2021-05-04] VITALS (99 sets, daily range): BP systolic 95–134; BP diastolic 46–63
[2021-05-04] MEDS: InsuLIN REG 1unit/0.01ml Soln (100units/ml) SC SCH ×4 (01:19→18:02)
[2021-05-04] MEDS: VANCOMYCIN 1GM/250ML 250 ML IV SCH ×2 (03:00→14:07)
[2021-05-04] MEDS: PIPERACILLIN-TAZO 4.5GM 100 ML IV SCH ×5 (04:00→23:55)
[2021-05-04] MEDS: PROPOFOL 100 ML IV SCH (04:15)
[2021-05-04] MEDS: MIDAZOLAM DRIP 50 mg/50mL 50 ML IV SCH ×3 (04:29→17:15)
[2021-05-04] MEDS: ROCURONIUM BROMIDE 1,000 MG in D5W 5% 150 ML IV SCH (04:30)
[2021-05-04 05:23] LABS: Basophils # (auto) 0.1 10 ^3/uL (0-0.2); Basophils % (auto) 0.7 % (0.0-2.0); Eosinophils # (auto) 0 10 ^3/uL (0-0.8); Hematocrit 34.7 % (36.0-46.0); Lymphocytes # (auto) 0.7 10 ^3/uL (0.4-5.4); Lymphocytes % (auto) 8.4 % (10.0-50.0); Mean Corpuscular Hemoglobin 30.6 pg (28.0-32.0); Mean Corpuscular Hgb Conc. 34.6 g/dL (32.0-36.0); Mean Corpuscular Volume 88.4 fL (80.0-100.0); Monocytes # (auto) 0.4 10 ^3/uL (0-1.3); Monocytes % (auto) 5.6 % (0.0-12.0); Neutrophils # (auto) 6.6 10 ^3/uL (1.6-8.6); Neutrophils % (auto) 85.3 % (37.0-80.0); Nucleated Red Blood Cells % 0.1 %; Red Blood Cells 3.92 10^6/uL (4.0-5.20); Red Cell Distribution Width 12.6 % (11.8-14.3); White Blood Cell 7.7 10^3/uL (4.4-10.8)
[2021-05-04 05:52] LABS: Albumin 1.8 g/dL (3.4-5.0); Calcium 8.2 mg/dL (8.5-10.1); Potassium 3.8 mmol/L (3.5-5.1)
[2021-05-04 05:58] LABS: BUN/Creatinine Ratio 52.7; Bilirubin, Total 0.7 mg/dL (0.2-1.0); Total Protein 6.3 g/dL (6.4-8.2)
[2021-05-04] MEDS: FUROSEMIDE 20 MG/2 ML VIAL IV SCH ×2 (06:00→18:07)
[2021-05-04] MEDS: ENOXAPARIN SOD 100 MG/1 ML SYRINGE SC SCH ×2 (06:00→18:07)
[2021-05-04] MEDS: ACCU-CHEK COMFORT CURVE STRIP VI SCH ×3 (06:45→18:02)
[2021-05-04] MEDS: SODIUM CHLOR 0.9% PF (SALINE LOCK) 10ML VIAL/SYR IV SCH ×2 (11:04→20:24)
[2021-05-04] MEDS: DexAMETHasone SOD PHOS 10MG/1ML VIAL INJ IV SCH (11:04)
[2021-05-04] MEDS: FAMOTIDINE (10MG/ML) 2ML VL IV SCH ×2 (11:04→20:24)
[2021-05-04] MEDS: ZINC SULFATE 220mg CAP or TAB PO SCH (11:05)
[2021-05-04] MEDS: ASPirin 81 mg TAB PO SCH (11:05)
[2021-05-04] MEDS: ASCORBIC ACID 1,000 MG TAB PO SCH (11:06)
[2021-05-04] MEDS: FLORASTOR (S. BOULARDII) 250 MG CAP PO SCH ×2 (11:06→20:24)
[2021-05-04] MEDS: CHOLECALCIFEROL (VITD3) 2,000 UNIT CAP/TAB PO SCH (11:06)
[2021-05-04] MEDS: Vital AF 1.2 Cal 1 liter bottle GT SCH (13:51)
[2021-05-04] MEDS: NOREPINEPHRINE 8 MG/250ML KIT 250 ML IV SCH (18:08)
[2021-05-04] MEDS: ATORVASTATIN 20 MG TAB PO SCH (20:24)
[2021-05-04] MEDS: fentaNYL Drip 2500mCg/250mlNS 250 ML IV SCH (20:46)
[2021-05-05] VITALS (101 sets, daily range): BP systolic 80–155; BP diastolic 41–73
[2021-05-05] MEDS: VANCOMYCIN 1GM/250ML 250 ML IV SCH ×3 (00:23→21:50)
[2021-05-05] MEDS: ACCU-CHEK COMFORT CURVE STRIP VI SCH ×4 (00:23→17:34)
[2021-05-05] MEDS: PROPOFOL 100 ML IV SCH (04:15)
[2021-05-05] MEDS: ROCURONIUM BROMIDE 1,000 MG in D5W 5% 150 ML IV SCH (04:18)
[2021-05-05 05:25] LABS: Basophils # (auto) 0 10 ^3/uL (0-0.2); Basophils % (auto) 0.2 % (0.0-2.0); Eosinophils # (auto) 0 10 ^3/uL (0-0.8); Eosinophils % (auto) 0.4 % (0.0-7.0); Hematocrit 35.1 % (36.0-46.0); Hemoglobin 12.3 g/dL (12.2-16.2); Lymphocytes # (auto) 0.7 10 ^3/uL (0.4-5.4); Lymphocytes % (auto) 7.3 % (10.0-50.0); Mean Corpuscular Hemoglobin 30.7 pg (28.0-32.0); Mean Corpuscular Volume 87.9 fL (80.0-100.0); Monocytes # (auto) 0.4 10 ^3/uL (0-1.3); Monocytes % (auto) 4.7 % (0.0-12.0); Neutrophils # (auto) 8.1 10 ^3/uL (1.6-8.6); Neutrophils % (auto) 87.4 % (37.0-80.0); Red Blood Cells 3.99 10^6/uL (4.0-5.20); Red Cell Distribution Width 12.6 % (11.8-14.3); White Blood Cell 9.3 10^3/uL (4.4-10.8)
[2021-05-05 05:37] LABS: Albumin 1.8 g/dL (3.4-5.0); Calcium 8.4 mg/dL (8.5-10.1); Potassium 3.7 mmol/L (3.5-5.1)
[2021-05-05 05:43] LABS: BUN/Creatinine Ratio 46.7; Bilirubin, Total 0.6 mg/dL (0.2-1.0); Total Protein 6.4 g/dL (6.4-8.2)
[2021-05-05] MEDS: FUROSEMIDE 20 MG/2 ML VIAL IV SCH ×2 (06:00→17:15)
[2021-05-05] MEDS: ENOXAPARIN SOD 100 MG/1 ML SYRINGE SC SCH ×2 (06:28→17:15)
[2021-05-05] MEDS: InsuLIN REG 1unit/0.01ml Soln (100units/ml) SC SCH ×4 (06:32→17:34)
[2021-05-05] MEDS: fentaNYL Drip 2500mCg/250mlNS 250 ML IV SCH (07:31)
[2021-05-05] MEDS: PIPERACILLIN-TAZO 4.5GM 100 ML IV SCH ×3 (07:33→23:09)
[2021-05-05] MEDS: MIDAZOLAM DRIP 50 mg/50mL 50 ML IV SCH ×2 (08:58→15:31)
[2021-05-05] MEDS: FAMOTIDINE (10MG/ML) 2ML VL IV SCH ×2 (09:20→21:50)
[2021-05-05] MEDS: ZINC SULFATE 220mg CAP or TAB PO SCH (09:20)
[2021-05-05] MEDS: ASPirin 81 mg TAB PO SCH (09:20)
[2021-05-05] MEDS: DexAMETHasone SOD PHOS 10MG/1ML VIAL INJ IV SCH (09:20)
[2021-05-05] MEDS: ASCORBIC ACID 1,000 MG TAB PO SCH (09:20)
[2021-05-05] MEDS: FLORASTOR (S. BOULARDII) 250 MG CAP PO SCH ×2 (09:20→21:25)
[2021-05-05] MEDS: SODIUM CHLOR 0.9% PF (SALINE LOCK) 10ML VIAL/SYR IV SCH ×2 (09:21→21:23)
[2021-05-05] MEDS: CHOLECALCIFEROL (VITD3) 2,000 UNIT CAP/TAB PO SCH (09:21)
[2021-05-05] MEDS: NOREPINEPHRINE 8 MG/250ML KIT 250 ML IV SCH (18:15)
[2021-05-05] MEDS: ATORVASTATIN 20 MG TAB PO SCH (21:25)
[2021-05-06] VITALS (98 sets, daily range): BP systolic 88–143; BP diastolic 47–77
[2021-05-06] MEDS: ACCU-CHEK COMFORT CURVE STRIP VI SCH ×4 (00:24→18:07)
[2021-05-06] MEDS: ROCURONIUM BROMIDE 1,000 MG in D5W 5% 150 ML IV SCH (04:06)
[2021-05-06 04:57] LABS: Basophils # (auto) 0.1 10 ^3/uL (0-0.2); Basophils % (auto) 0.4 % (0.0-2.0); Eosinophils # (auto) 0 10 ^3/uL (0-0.8); Hematocrit 36.7 % (36.0-46.0); Hemoglobin 12.5 g/dL (12.2-16.2); Lymphocytes # (auto) 1.1 10 ^3/uL (0.4-5.4); Lymphocytes % (auto) 8.6 % (10.0-50.0); Mean Corpuscular Volume 88.2 fL (80.0-100.0); Monocytes # (auto) 0.6 10 ^3/uL (0-1.3); Monocytes % (auto) 5.1 % (0.0-12.0); Neutrophils # (auto) 10.6 10 ^3/uL (1.6-8.6); Neutrophils % (auto) 85.9 % (37.0-80.0); Red Blood Cells 4.16 10^6/uL (4.0-5.20); Red Cell Distribution Width 12.8 % (11.8-14.3); White Blood Cell 12.4 10^3/uL (4.4-10.8)
[2021-05-06 05:15] LABS: Calcium 8.5 mg/dL (8.5-10.1); Potassium 3.7 mmol/L (3.5-5.1)
[2021-05-06 05:19] LABS: BUN/Creatinine Ratio 41.7; Total Protein 6.9 g/dL (6.4-8.2)
[2021-05-06] MEDS: FUROSEMIDE 20 MG/2 ML VIAL IV SCH ×2 (06:00→18:06)
[2021-05-06] MEDS: ENOXAPARIN SOD 100 MG/1 ML SYRINGE SC SCH ×2 (06:13→18:06)
[2021-05-06] MEDS: InsuLIN REG 1unit/0.01ml Soln (100units/ml) SC SCH ×4 (06:38→18:07)
[2021-05-06] MEDS: MIDAZOLAM DRIP 50 mg/50mL 50 ML IV SCH ×2 (07:26→08:31)
[2021-05-06] MEDS: PIPERACILLIN-TAZO 4.5GM 100 ML IV SCH ×2 (08:51→15:50)
[2021-05-06] MEDS: CHOLECALCIFEROL (VITD3) 2,000 UNIT CAP/TAB PO SCH (11:27)
[2021-05-06] MEDS: FAMOTIDINE (10MG/ML) 2ML VL IV SCH ×2 (11:27→22:15)
[2021-05-06] MEDS: DexAMETHasone SOD PHOS 10MG/1ML VIAL INJ IV SCH (11:27)
[2021-05-06] MEDS: ASPirin 81 mg TAB PO SCH (11:27)
[2021-05-06] MEDS: ZINC SULFATE 220mg CAP or TAB PO SCH (11:28)
[2021-05-06] MEDS: ASCORBIC ACID 1,000 MG TAB PO SCH (11:28)
[2021-05-06] MEDS: FLORASTOR (S. BOULARDII) 250 MG CAP PO SCH ×2 (11:28→22:15)
[2021-05-06] MEDS: SODIUM CHLOR 0.9% PF (SALINE LOCK) 10ML VIAL/SYR IV SCH ×2 (11:29→22:15)
[2021-05-06] MEDS ORDERED: FUROSEMIDE 20 MG/2 ML VIAL IV ONE (12:15)
[2021-05-06] MEDS: VANCOMYCIN 1GM/250ML 250 ML IV SCH ×2 (13:00→21:00)
[2021-05-06] MEDS: NOREPINEPHRINE 8 MG/250ML KIT 250 ML IV SCH (18:15)
[2021-05-06] MEDS: ATORVASTATIN 20 MG TAB PO SCH (22:15)
[2021-05-07] VITALS (97 sets, daily range): BP systolic 84–153; BP diastolic 42–74
[2021-05-07] MEDS: PIPERACILLIN-TAZO 4.5GM 100 ML IV SCH ×4 (00:18→23:52)
[2021-05-07] MEDS: ROCURONIUM BROMIDE 1,000 MG in D5W 5% 150 ML IV SCH (03:54)
[2021-05-07] MEDS: PROPOFOL 100 ML IV SCH (03:55)
[2021-05-07] MEDS: fentaNYL Drip 2500mCg/250mlNS 250 ML IV SCH ×2 (03:57→15:56)
[2021-05-07] MEDS: InsuLIN REG 1unit/0.01ml Soln (100units/ml) SC SCH ×4 (06:00→17:46)
[2021-05-07] MEDS: FUROSEMIDE 20 MG/2 ML VIAL IV SCH ×2 (06:00→10:00)
[2021-05-07] MEDS: ACCU-CHEK COMFORT CURVE STRIP VI SCH ×4 (06:00→17:40)
[2021-05-07] MEDS: ENOXAPARIN SOD 100 MG/1 ML SYRINGE SC SCH ×2 (06:00→16:55)
[2021-05-07] MEDS: VANCOMYCIN 1GM/250ML 250 ML IV SCH ×2 (09:02→18:43)
[2021-05-07] MEDS: DexAMETHasone SOD PHOS 10MG/1ML VIAL INJ IV SCH (09:59)
[2021-05-07] MEDS: ZINC SULFATE 220mg CAP or TAB PO SCH (10:00)
[2021-05-07] MEDS: FLORASTOR (S. BOULARDII) 250 MG CAP PO SCH ×2 (10:00→21:27)
[2021-05-07] MEDS: ASPirin 81 mg TAB PO SCH (10:00)
[2021-05-07] MEDS ORDERED: FUROSEMIDE 20 MG/2 ML VIAL IV SCH (10:00)
[2021-05-07] MEDS: ASCORBIC ACID 1,000 MG TAB PO SCH (10:00)
[2021-05-07] MEDS: CHOLECALCIFEROL (VITD3) 2,000 UNIT CAP/TAB PO SCH (10:00)
[2021-05-07] MEDS: SODIUM CHLOR 0.9% PF (SALINE LOCK) 10ML VIAL/SYR IV SCH ×2 (10:01→21:27)
[2021-05-07] MEDS: FAMOTIDINE (10MG/ML) 2ML VL IV SCH ×2 (10:01→21:27)
[2021-05-07] MEDS: MIDAZOLAM DRIP 50 mg/50mL 50 ML IV SCH ×2 (15:47→21:44)
[2021-05-07] MEDS: NOREPINEPHRINE 8 MG/250ML KIT 250 ML IV SCH (17:46)
[2021-05-07] MEDS: ATORVASTATIN 20 MG TAB PO SCH (21:27)
[2021-05-08] VITALS (100 sets, daily range): BP systolic 79–129; BP diastolic 43–72
[2021-05-08] MEDS: ACCU-CHEK COMFORT CURVE STRIP VI SCH ×5 (00:57→23:49)
[2021-05-08] MEDS: InsuLIN REG 1unit/0.01ml Soln (100units/ml) SC SCH ×5 (00:57→23:50)
[2021-05-08] MEDS: ROCURONIUM BROMIDE 1,000 MG in D5W 5% 150 ML IV SCH (03:42)
[2021-05-08] MEDS: PROPOFOL 100 ML IV SCH (04:15)
[2021-05-08] MEDS: fentaNYL Drip 2500mCg/250mlNS 250 ML IV SCH ×2 (05:50→22:04)
[2021-05-08] MEDS: ENOXAPARIN SOD 100 MG/1 ML SYRINGE SC SCH ×2 (05:51→16:55)
[2021-05-08 06:14] LABS: Basophils # (auto) 0 10 ^3/uL (0-0.2); Basophils % (auto) 0.2 % (0.0-2.0); Eosinophils # (auto) 0 10 ^3/uL (0-0.8); Eosinophils % (auto) 0.1 % (0.0-7.0); Hematocrit 30.7 % (36.0-46.0); Hemoglobin 10.8 g/dL (12.2-16.2); Lymphocytes # (auto) 0.9 10 ^3/uL (0.4-5.4); Lymphocytes % (auto) 5.9 % (10.0-50.0); Mean Corpuscular Hemoglobin 30.6 pg (28.0-32.0); Mean Corpuscular Hgb Conc. 35.1 g/dL (32.0-36.0); Mean Corpuscular Volume 87.3 fL (80.0-100.0); Monocytes # (auto) 0.5 10 ^3/uL (0-1.3); Monocytes % (auto) 3.5 % (0.0-12.0); Neutrophils # (auto) 13.2 10 ^3/uL (1.6-8.6); Neutrophils % (auto) 90.3 % (37.0-80.0); Red Blood Cells 3.52 10^6/uL (4.0-5.20); Red Cell Distribution Width 12.5 % (11.8-14.3); White Blood Cell 14.6 10^3/uL (4.4-10.8)
[2021-05-08 06:27] LABS: Potassium 3.2 mmol/L (3.5-5.1)
[2021-05-08] MEDS: VANCOMYCIN 1GM/250ML 250 ML IV SCH ×2 (06:30→16:55)
[2021-05-08] MEDS: FUROSEMIDE 20 MG/2 ML VIAL IV SCH ×2 (06:31→17:42)
[2021-05-08 06:36] LABS: BUN/Creatinine Ratio 51.9; Calcium 8.2 mg/dL (8.5-10.1)
[2021-05-08] MEDS: MIDAZOLAM DRIP 50 mg/50mL 50 ML IV SCH ×4 (06:37→22:03)
[2021-05-08] MEDS: PIPERACILLIN-TAZO 4.5GM 100 ML IV SCH ×3 (08:14→23:49)
[2021-05-08] MEDS: CHOLECALCIFEROL (VITD3) 2,000 UNIT CAP/TAB PO SCH (10:00)
[2021-05-08] MEDS: ASPirin 81 mg TAB PO SCH (10:01)
[2021-05-08] MEDS: FLORASTOR (S. BOULARDII) 250 MG CAP PO SCH ×2 (10:01→22:02)
[2021-05-08] MEDS: FAMOTIDINE (10MG/ML) 2ML VL IV SCH ×2 (10:01→22:02)
[2021-05-08] MEDS: ASCORBIC ACID 1,000 MG TAB PO SCH (10:01)
[2021-05-08] MEDS: SODIUM CHLOR 0.9% PF (SALINE LOCK) 10ML VIAL/SYR IV SCH ×2 (10:01→22:02)
[2021-05-08] MEDS: DexAMETHasone SOD PHOS 10MG/1ML VIAL INJ IV SCH (10:01)
[2021-05-08] MEDS: ZINC SULFATE 220mg CAP or TAB PO SCH (10:01)
[2021-05-08] MEDS ORDERED: POTASSIUM CHL 20MEQ/100ML 100 ML IV ONE ×2 (11:15→11:28)
[2021-05-08] MEDS: NOREPINEPHRINE 8 MG/250ML KIT 250 ML IV SCH ×2 (15:02→22:03)
[2021-05-08] MEDS: ATORVASTATIN 20 MG TAB PO SCH (22:02)
[2021-05-09] VITALS (96 sets, daily range): BP systolic 76–126; BP diastolic 41–71
[2021-05-09] MEDS: ROCURONIUM BROMIDE 1,000 MG in D5W 5% 150 ML IV SCH (03:30)
[2021-05-09] MEDS: PROPOFOL 100 ML IV SCH ×2 (04:15→23:00)
[2021-05-09 05:44] LABS: Basophils # (auto) 0.1 10 ^3/uL (0-0.2); Basophils % (auto) 0.5 % (0.0-2.0); Eosinophils # (auto) 0 10 ^3/uL (0-0.8); Hematocrit 28.1 % (36.0-46.0); Hemoglobin 9.7 g/dL (12.2-16.2); Lymphocytes # (auto) 0.7 10 ^3/uL (0.4-5.4); Lymphocytes % (auto) 4.5 % (10.0-50.0); Mean Corpuscular Hemoglobin 30.1 pg (28.0-32.0); Mean Corpuscular Hgb Conc. 34.5 g/dL (32.0-36.0); Mean Corpuscular Volume 87.2 fL (80.0-100.0); Monocytes # (auto) 0.6 10 ^3/uL (0-1.3); Monocytes % (auto) 3.9 % (0.0-12.0); Neutrophils # (auto) 14.9 10 ^3/uL (1.6-8.6); Neutrophils % (auto) 91.1 % (37.0-80.0); Red Blood Cells 3.22 10^6/uL (4.0-5.20); Red Cell Distribution Width 12.6 % (11.8-14.3); White Blood Cell 16.4 10^3/uL (4.4-10.8)
[2021-05-09 06:02] LABS: Albumin 1.9 g/dL (3.4-5.0); BUN/Creatinine Ratio 62.5; Calcium 8.3 mg/dL (8.5-10.1); Potassium 3.3 mmol/L (3.5-5.1)
[2021-05-09 06:06] LABS: Bilirubin, Total 0.8 mg/dL (0.2-1.0); Total Protein 6.1 g/dL (6.4-8.2)
[2021-05-09] MEDS: MIDAZOLAM DRIP 50 mg/50mL 50 ML IV SCH ×3 (06:16→17:17)
[2021-05-09] MEDS: VANCOMYCIN 1GM/250ML 250 ML IV SCH ×2 (06:19→17:15)
[2021-05-09] MEDS: FUROSEMIDE 20 MG/2 ML VIAL IV SCH ×2 (06:28→17:15)
[2021-05-09] MEDS: InsuLIN REG 1unit/0.01ml Soln (100units/ml) SC SCH ×4 (06:29→23:47)
[2021-05-09] MEDS: ACCU-CHEK COMFORT CURVE STRIP VI SCH ×4 (06:30→23:46)
[2021-05-09] MEDS: ENOXAPARIN SOD 100 MG/1 ML SYRINGE SC SCH (06:30)
[2021-05-09] MEDS ORDERED: VANCOMYCIN 1GM/250ML 250 ML IV SCH (07:00)
[2021-05-09] MEDS: PIPERACILLIN-TAZO 4.5GM 100 ML IV SCH ×3 (08:11→23:46)
[2021-05-09] MEDS: ASCORBIC ACID 1,000 MG TAB PO SCH (10:28)
[2021-05-09] MEDS: DexAMETHasone SOD PHOS 10MG/1ML VIAL INJ IV SCH (10:28)
[2021-05-09] MEDS: ZINC SULFATE 220mg CAP or TAB PO SCH (10:28)
[2021-05-09] MEDS: ASPirin 81 mg TAB PO SCH (10:28)
[2021-05-09] MEDS: FLORASTOR (S. BOULARDII) 250 MG CAP PO SCH ×2 (10:28→21:42)
[2021-05-09] MEDS: CHOLECALCIFEROL (VITD3) 2,000 UNIT CAP/TAB PO SCH (10:28)
[2021-05-09] MEDS: FAMOTIDINE (10MG/ML) 2ML VL IV SCH ×2 (10:28→21:41)
[2021-05-09] MEDS: SODIUM CHLOR 0.9% PF (SALINE LOCK) 10ML VIAL/SYR IV SCH ×2 (10:29→21:42)
[2021-05-09] MEDS ORDERED: POTASSIUM EFFERVESENT TAB 25 MEQ GT ONE (13:00)
[2021-05-09] MEDS: fentaNYL Drip 2500mCg/250mlNS 250 ML IV SCH (14:00)
[2021-05-09] MEDS: ENOXAPARIN SOD 60 MG/0.6 ML SYRINGE SC SCH (17:59)
[2021-05-09] MEDS: POTASSIUM EFFERVESENT TAB 25 MEQ GT SCH (21:41)
[2021-05-09] MEDS: ATORVASTATIN 20 MG TAB PO SCH (21:42)
[2021-05-10] VITALS (97 sets, daily range): BP systolic 52–126; BP diastolic 20–63
[2021-05-10] MEDS: ROCURONIUM BROMIDE 1,000 MG in D5W 5% 150 ML IV SCH (03:15)
[2021-05-10] MEDS: VANCOMYCIN 1GM/250ML 250 ML IV SCH ×2 (04:00→21:38)
[2021-05-10] MEDS: PROPOFOL 100 ML IV SCH ×2 (04:15→09:46)
[2021-05-10] MEDS: ENOXAPARIN SOD 60 MG/0.6 ML SYRINGE SC SCH ×2 (04:59→18:00)
[2021-05-10] MEDS: ACCU-CHEK COMFORT CURVE STRIP VI SCH ×4 (05:15→23:58)
[2021-05-10] MEDS: InsuLIN REG 1unit/0.01ml Soln (100units/ml) SC SCH ×3 (05:15→18:00)
[2021-05-10] MEDS: FUROSEMIDE 20 MG/2 ML VIAL IV SCH ×2 (05:17→18:27)
[2021-05-10 05:18] LABS: Basophils # (auto) 0 10 ^3/uL (0-0.2); Eosinophils # (auto) 0 10 ^3/uL (0-0.8); Monocytes # (auto) 0.9 10 ^3/uL (0-1.3); Monocytes % (auto) 4.8 % (0.0-12.0)
[2021-05-10 05:24] LABS: Basophils % (auto) 0.1 % (0.0-2.0); Hematocrit 23.8 % (36.0-46.0); Hemoglobin 8.3 g/dL (12.2-16.2); Lymphocytes # (auto) 1.1 10 ^3/uL (0.4-5.4); Lymphocytes % (auto) 5.9 % (10.0-50.0); Mean Corpuscular Hemoglobin 30.2 pg (28.0-32.0); Mean Corpuscular Hgb Conc. 34.7 g/dL (32.0-36.0); Neutrophils # (auto) 17.1 10 ^3/uL (1.6-8.6); Neutrophils % (auto) 89.2 % (37.0-80.0); Red Blood Cells 2.74 10^6/uL (4.0-5.20); Red Cell Distribution Width 12.6 % (11.8-14.3); White Blood Cell 19.2 10^3/uL (4.4-10.8)
[2021-05-10 05:53] LABS: Potassium 3.5 mmol/L (3.5-5.1)
[2021-05-10 05:58] LABS: Albumin 1.8 g/dL (3.4-5.0); BUN/Creatinine Ratio 47.1; Calcium 8.4 mg/dL (8.5-10.1)
[2021-05-10 06:00] LABS: Bilirubin, Total 0.6 mg/dL (0.2-1.0)
[2021-05-10] MEDS: PIPERACILLIN-TAZO 4.5GM 100 ML IV SCH ×3 (08:17→23:58)
[2021-05-10] MEDS: DexAMETHasone SOD PHOS 10MG/1ML VIAL INJ IV SCH (09:44)
[2021-05-10] MEDS: CHOLECALCIFEROL (VITD3) 2,000 UNIT CAP/TAB PO SCH (09:44)
[2021-05-10] MEDS: ZINC SULFATE 220mg CAP or TAB PO SCH (09:44)
[2021-05-10] MEDS: POTASSIUM EFFERVESENT TAB 25 MEQ GT SCH ×2 (09:44→21:57)
[2021-05-10] MEDS: ASPirin 81 mg TAB PO SCH (09:44)
[2021-05-10] MEDS: FLORASTOR (S. BOULARDII) 250 MG CAP PO SCH ×2 (09:44→21:57)
[2021-05-10] MEDS: FAMOTIDINE (10MG/ML) 2ML VL IV SCH ×2 (09:44→21:57)
[2021-05-10] MEDS: ASCORBIC ACID 1,000 MG TAB PO SCH (09:44)
[2021-05-10] MEDS: SODIUM CHLOR 0.9% PF (SALINE LOCK) 10ML VIAL/SYR IV SCH ×2 (09:44→21:38)
[2021-05-10] MEDS ORDERED: fentaNYL Drip 2500mCg/250mlNS 250 ML IV ONE (14:57)
[2021-05-10] MEDS: fentaNYL Drip 2500mCg/250mlNS 250 ML IV SCH (15:00)
[2021-05-10] MEDS: NOREPINEPHRINE 8 MG/250ML KIT 250 ML IV SCH (18:15)
[2021-05-10] MEDS: ATORVASTATIN 20 MG TAB PO SCH (21:57)
[2021-05-11] VITALS (98 sets, daily range): BP systolic 84–138; BP diastolic 41–88
[2021-05-11] MEDS: InsuLIN REG 1unit/0.01ml Soln (100units/ml) SC SCH ×4 (00:02→17:32)
[2021-05-11] MEDS: ROCURONIUM BROMIDE 1,000 MG in D5W 5% 150 ML IV SCH (03:06)
[2021-05-11 04:06] LABS: Basophils # (auto) 0 10 ^3/uL (0-0.2); Basophils % (auto) 0.1 % (0.0-2.0); Eosinophils # (auto) 0 10 ^3/uL (0-0.8); Lymphocytes # (auto) 1.2 10 ^3/uL (0.4-5.4); Monocytes # (auto) 1.1 10 ^3/uL (0-1.3); Red Blood Cells 2.38 10^6/uL (4.0-5.20); Red Cell Distribution Width 12.7 % (11.8-14.3)
[2021-05-11 04:08] LABS: Eosinophils % (auto) 0.1 % (0.0-7.0); Hematocrit 21.2 % (36.0-46.0); Hemoglobin 7.3 g/dL (12.2-16.2); Lymphocytes % (auto) 5.8 % (10.0-50.0); Mean Corpuscular Hemoglobin 30.6 pg (28.0-32.0); Mean Corpuscular Hgb Conc. 34.3 g/dL (32.0-36.0); Mean Corpuscular Volume 89.1 fL (80.0-100.0); Neutrophils # (auto) 18.9 10 ^3/uL (1.6-8.6); White Blood Cell 21.3 10^3/uL (4.4-10.8)
[2021-05-11 04:22] LABS: Albumin 1.8 g/dL (3.4-5.0); Calcium 8.1 mg/dL (8.5-10.1)
[2021-05-11 04:24] LABS: BUN/Creatinine Ratio 38.1
[2021-05-11 04:27] LABS: Bilirubin, Total 0.5 mg/dL (0.2-1.0); Total Protein 5.7 g/dL (6.4-8.2)
[2021-05-11] MEDS: ENOXAPARIN SOD 60 MG/0.6 ML SYRINGE SC SCH ×2 (05:36→17:34)
[2021-05-11] MEDS: FUROSEMIDE 20 MG/2 ML VIAL IV SCH ×2 (05:38→18:13)
[2021-05-11] MEDS: ACCU-CHEK COMFORT CURVE STRIP VI SCH ×3 (06:00→17:33)
[2021-05-11] MEDS: PIPERACILLIN-TAZO 4.5GM 100 ML IV SCH ×2 (07:30→16:44)
[2021-05-11] MEDS: DexAMETHasone SOD PHOS 10MG/1ML VIAL INJ IV SCH (09:20)
[2021-05-11] MEDS: FAMOTIDINE (10MG/ML) 2ML VL IV SCH ×2 (09:20→21:31)
[2021-05-11] MEDS: SODIUM CHLOR 0.9% PF (SALINE LOCK) 10ML VIAL/SYR IV SCH ×2 (09:20→21:30)
[2021-05-11] MEDS: PROPOFOL 100 ML IV SCH ×3 (09:21→16:45)
[2021-05-11] MEDS: MIDAZOLAM DRIP 50 mg/50mL 50 ML IV SCH ×3 (09:22→18:13)
[2021-05-11] MEDS: ZINC SULFATE 220mg CAP or TAB PO SCH (09:23)
[2021-05-11] MEDS: POTASSIUM EFFERVESENT TAB 25 MEQ GT SCH ×2 (09:23→21:30)
[2021-05-11] MEDS: ASPirin 81 mg TAB PO SCH (09:23)
[2021-05-11] MEDS: FLORASTOR (S. BOULARDII) 250 MG CAP PO SCH (09:23)
[2021-05-11] MEDS: CHOLECALCIFEROL (VITD3) 2,000 UNIT CAP/TAB PO SCH (09:24)
[2021-05-11] MEDS: ASCORBIC ACID 1,000 MG TAB PO SCH (09:24)
[2021-05-11] MEDS: fentaNYL Drip 2500mCg/250mlNS 250 ML IV SCH (13:48)
[2021-05-11] MEDS: VANCOMYCIN 1GM/250ML 250 ML IV SCH (15:31)
[2021-05-11] MEDS: NOREPINEPHRINE 8 MG/250ML KIT 250 ML IV SCH (16:46)
[2021-05-11] MEDS: ATORVASTATIN 20 MG TAB PO SCH (21:30)
[2021-05-12] VITALS (97 sets, daily range): BP systolic 72–147; BP diastolic 34–64
[2021-05-12 02:36] LABS: Basophils # (auto) 0.1 10 ^3/uL (0-0.2); Eosinophils # (auto) 0 10 ^3/uL (0-0.8); Eosinophils % (auto) 0.1 % (0.0-7.0); Nucleated Red Blood Cells % 0.1 %
[2021-05-12 02:42] LABS: Basophils % (auto) 0.3 % (0.0-2.0); Hematocrit 23.5 % (36.0-46.0); Hemoglobin 8.2 g/dL (12.2-16.2); Lymphocytes # (auto) 1.1 10 ^3/uL (0.4-5.4); Lymphocytes % (auto) 6.1 % (10.0-50.0); Mean Corpuscular Hemoglobin 30.6 pg (28.0-32.0); Mean Corpuscular Hgb Conc. 34.9 g/dL (32.0-36.0); Mean Corpuscular Volume 87.5 fL (80.0-100.0); Monocytes # (auto) 1.2 10 ^3/uL (0-1.3); Monocytes % (auto) 6.6 % (0.0-12.0); Neutrophils # (auto) 15.7 10 ^3/uL (1.6-8.6); Neutrophils % (auto) 86.9 % (37.0-80.0); Red Blood Cells 2.69 10^6/uL (4.0-5.20); Red Cell Distribution Width 14.2 % (11.8-14.3)
[2021-05-12] MEDS: ROCURONIUM BROMIDE 1,000 MG in D5W 5% 150 ML IV SCH (02:54)
[2021-05-12 03:09] LABS: BUN/Creatinine Ratio 29.3; Calcium 8.5 mg/dL (8.5-10.1); Potassium 3.4 mmol/L (3.5-5.1)
[2021-05-12] MEDS: ENOXAPARIN SOD 60 MG/0.6 ML SYRINGE SC SCH ×2 (05:45→18:00)
[2021-05-12] MEDS: FUROSEMIDE 20 MG/2 ML VIAL IV SCH ×2 (05:45→17:28)
[2021-05-12] MEDS: InsuLIN REG 1unit/0.01ml Soln (100units/ml) SC SCH ×4 (05:46→17:33)
[2021-05-12] MEDS: ACCU-CHEK COMFORT CURVE STRIP VI SCH ×4 (05:46→17:28)
[2021-05-12] MEDS: PIPERACILLIN-TAZO 4.5GM 100 ML IV SCH ×3 (07:46→16:14)
[2021-05-12] MEDS: ASPirin 81 mg TAB PO SCH (10:00)
[2021-05-12] MEDS: ASCORBIC ACID 1,000 MG TAB PO SCH (10:00)
[2021-05-12] MEDS: PROPOFOL 100 ML IV SCH ×5 (10:00→23:39)
[2021-05-12] MEDS: ZINC SULFATE 220mg CAP or TAB PO SCH (10:00)
[2021-05-12] MEDS: SODIUM CHLOR 0.9% PF (SALINE LOCK) 10ML VIAL/SYR IV SCH ×2 (10:00→22:01)
[2021-05-12] MEDS: CHOLECALCIFEROL (VITD3) 2,000 UNIT CAP/TAB PO SCH (10:00)
[2021-05-12] MEDS: POTASSIUM EFFERVESENT TAB 25 MEQ GT SCH ×2 (10:00→22:00)
[2021-05-12] MEDS: MIDAZOLAM DRIP 50 mg/50mL 50 ML IV SCH ×4 (10:09→22:05)
[2021-05-12] MEDS: FAMOTIDINE (10MG/ML) 2ML VL IV SCH ×2 (10:10→22:00)
[2021-05-12] MEDS: VANCOMYCIN 1GM/250ML 250 ML IV SCH (10:18)
[2021-05-12] MEDS: fentaNYL Drip 2500mCg/250mlNS 250 ML IV SCH (13:30)
[2021-05-12] MEDS: NOREPINEPHRINE 8 MG/250ML KIT 250 ML IV SCH (18:15)
[2021-05-12] MEDS: ATORVASTATIN 20 MG TAB PO SCH (22:01)
[2021-05-13] VITALS (100 sets, daily range): BP systolic 80–148; BP diastolic 41–69
[2021-05-13] MEDS: MIDAZOLAM DRIP 50 mg/50mL 50 ML IV SCH ×6 (02:36→20:30)
[2021-05-13] MEDS: ROCURONIUM BROMIDE 1,000 MG in D5W 5% 150 ML IV SCH (02:42)
[2021-05-13] MEDS: ACCU-CHEK COMFORT CURVE STRIP VI SCH ×4 (03:07→18:00)
[2021-05-13] MEDS: PIPERACILLIN-TAZO 4.5GM 100 ML IV SCH ×2 (03:20→08:00)
[2021-05-13] MEDS: fentaNYL Drip 2500mCg/250mlNS 250 ML IV SCH ×2 (03:40→12:49)
[2021-05-13 04:12] LABS: Calcium 6.8 mg/dL (8.5-10.1)
[2021-05-13 04:17] LABS: BUN/Creatinine Ratio 28.2
[2021-05-13 04:18] LABS: Potassium 2.8 mmol/L (3.5-5.1)
[2021-05-13] MEDS: VANCOMYCIN 1GM/250ML 250 ML IV SCH (04:23)
[2021-05-13] MEDS ORDERED: POTASSIUM CHL 20MEQ/100ML 200 ML IV ONE (04:54)
[2021-05-13 05:16] LABS: Eosinophils # (auto) 0.7 10 ^3/uL (0-0.8); Lymphocytes # (auto) 1.5 10 ^3/uL (0.4-5.4); Monocytes # (auto) 0.6 10 ^3/uL (0-1.3)
[2021-05-13 05:17] LABS: Basophils # (auto) 0.2 10 ^3/uL (0-0.2); Basophils % (auto) 1.2 % (0.0-2.0); Hematocrit 21.9 % (36.0-46.0); Hemoglobin 8.1 g/dL (12.2-16.2); Lymphocytes % (auto) 11.8 % (10.0-50.0); Mean Corpuscular Hemoglobin 32.9 pg (28.0-32.0); Mean Corpuscular Volume 89.4 fL (80.0-100.0); Monocytes % (auto) 4.7 % (0.0-12.0); Neutrophils # (auto) 10.1 10 ^3/uL (1.6-8.6); Neutrophils % (auto) 77.3 % (37.0-80.0); Nucleated Red Blood Cells % 0.2 %; Red Blood Cells 2.45 10^6/uL (4.0-5.20); Red Cell Distribution Width 14.2 % (11.8-14.3); White Blood Cell 13.1 10^3/uL (4.4-10.8)
[2021-05-13 05:18] LABS: Mean Corpuscular Hgb Conc. 36.8 g/dL (32.0-36.0)
[2021-05-13] MEDS: InsuLIN REG 1unit/0.01ml Soln (100units/ml) SC SCH ×4 (05:59→18:00)
[2021-05-13] MEDS: ENOXAPARIN SOD 60 MG/0.6 ML SYRINGE SC SCH ×2 (06:00→18:00)
[2021-05-13] MEDS: POTASSIUM CHL 20MEQ/100ML 100 ML IV SCH ×2 (06:00→06:39)
[2021-05-13] MEDS: FUROSEMIDE 20 MG/2 ML VIAL IV SCH ×2 (06:00→18:00)
[2021-05-13] MEDS: PROPOFOL 100 ML IV SCH ×5 (07:26→23:29)
[2021-05-13] MEDS: SODIUM CHLOR 0.9% PF (SALINE LOCK) 10ML VIAL/SYR IV SCH ×2 (10:00→22:25)
[2021-05-13] MEDS: ASCORBIC ACID 1,000 MG TAB PO SCH (10:00)
[2021-05-13] MEDS: POTASSIUM EFFERVESENT TAB 25 MEQ GT SCH ×2 (10:00→22:25)
[2021-05-13] MEDS: FAMOTIDINE (10MG/ML) 2ML VL IV SCH ×2 (10:00→22:26)
[2021-05-13] MEDS: ZINC SULFATE 220mg CAP or TAB PO SCH (10:00)
[2021-05-13] MEDS: ASPirin 81 mg TAB PO SCH (10:00)
[2021-05-13] MEDS: CHOLECALCIFEROL (VITD3) 2,000 UNIT CAP/TAB PO SCH (10:00)
[2021-05-13] MEDS: NOREPINEPHRINE 8 MG/250ML KIT 250 ML IV SCH (11:00)
[2021-05-13] MEDS ORDERED: acetaZOLAMIDE SODIUM 500 MG VL IV ONE (12:00)
[2021-05-13] MEDS: Vital AF 1.2 Cal 1 liter bottle GT SCH (16:31)
[2021-05-13] MEDS: ATORVASTATIN 20 MG TAB PO SCH (22:26)
[2021-05-14] VITALS (65 sets, daily range): BP systolic 75–121; BP diastolic 36–91
[2021-05-14] MEDS: ACCU-CHEK COMFORT CURVE STRIP VI SCH ×3 (00:20→12:25)
[2021-05-14] MEDS: InsuLIN REG 1unit/0.01ml Soln (100units/ml) SC SCH ×3 (00:26→12:00)
[2021-05-14] MEDS: MIDAZOLAM DRIP 50 mg/50mL 50 ML IV SCH ×2 (00:53→04:44)
[2021-05-14] MEDS: fentaNYL Drip 2500mCg/250mlNS 250 ML IV SCH (01:18)
[2021-05-14] MEDS: ROCURONIUM BROMIDE 1,000 MG in D5W 5% 150 ML IV SCH (02:30)
[2021-05-14] MEDS: PROPOFOL 100 ML IV SCH (03:40)
[2021-05-14] MEDS: ENOXAPARIN SOD 60 MG/0.6 ML SYRINGE SC SCH (05:21)
[2021-05-14] MEDS: FUROSEMIDE 20 MG/2 ML VIAL IV SCH (05:30)
[2021-05-14] MEDS: POTASSIUM EFFERVESENT TAB 25 MEQ GT SCH (09:09)
[2021-05-14] MEDS: SODIUM CHLOR 0.9% PF (SALINE LOCK) 10ML VIAL/SYR IV SCH (09:10)
[2021-05-14] MEDS: ZINC SULFATE 220mg CAP or TAB PO SCH (09:10)
[2021-05-14] MEDS: CHOLECALCIFEROL (VITD3) 2,000 UNIT CAP/TAB PO SCH (09:10)
[2021-05-14] MEDS: ASCORBIC ACID 1,000 MG TAB PO SCH (09:10)
[2021-05-14] MEDS: FAMOTIDINE (10MG/ML) 2ML VL IV SCH (09:10)
[2021-05-14 09:23] LABS: Basophils # (auto) 0.1 10 ^3/uL (0-0.2); Basophils % (auto) 0.4 % (0.0-2.0); Eosinophils # (auto) 1.2 10 ^3/uL (0-0.8); Eosinophils % (auto) 6.5 % (0.0-7.0); Hematocrit 30.4 % (36.0-46.0); Hemoglobin 9.9 g/dL (12.2-16.2); Lymphocytes # (auto) 1.2 10 ^3/uL (0.4-5.4); Lymphocytes % (auto) 6.1 % (10.0-50.0); Mean Corpuscular Hemoglobin 30.5 pg (28.0-32.0); Mean Corpuscular Hgb Conc. 32.6 g/dL (32.0-36.0); Mean Corpuscular Volume 93.5 fL (80.0-100.0); Monocytes # (auto) 0.6 10 ^3/uL (0-1.3); Monocytes % (auto) 3.1 % (0.0-12.0); Neutrophils % (auto) 83.9 % (37.0-80.0); Nucleated Red Blood Cells % 0.1 %; Red Blood Cells 3.25 10^6/uL (4.0-5.20); Red Cell Distribution Width 14.5 % (11.8-14.3); White Blood Cell 19.1 10^3/uL (4.4-10.8)
[2021-05-14 09:33] LABS: Albumin 1.7 g/dL (3.4-5.0); Calcium 8.5 mg/dL (8.5-10.1)
[2021-05-14 09:36] LABS: Bilirubin, Total 0.6 mg/dL (0.2-1.0); Total Protein 6.2 g/dL (6.4-8.2)
[2021-05-14] MEDS: ASPirin 81 mg TAB PO SCH (10:00)
[2021-05-14] MEDS ORDERED: LORazepam 2MG/ML-1ML VIAL IV PRN (13:00)
[2021-05-14] MEDS ORDERED: MORPHINE SULFATE INJECTION 2 MG/ML SYRG IV PRN (13:00)
== END 2021-05-14 20:45 | DRG 207 ==
LOC: ER 10:15 → TELE 13:13 → DOU IN ICU 04-29 03:00
PROVIDERS: ADMIT Hospitalist; ATTEND Family Medicine
PROC: 5A1955Z Respiratory Ventilation, Greater than 96 Consecutive Hours (ICD-10-PCS; 2021-04-28)
PROC: 0BH17EZ Insertion of Endotracheal Airway into Trachea, Via Natural or Artificial Opening (ICD-10-PCS; 2021-04-28)
PROC: 05HD33Z Insertion of Infusion Device into Right Cephalic Vein, Percutaneous Approach (ICD-10-PCS; principal; 2021-05-11)
PROC: B54MZZA Ultrasonography of Right Upper Extremity Veins, Guidance (ICD-10-PCS; 2021-05-11)
PROC: 30233K1 Transfusion of Nonautologous Frozen Plasma into Peripheral Vein, Percutaneous Approach (ICD-10-PCS; 2021-05-11)
PROC: 30233N1 Transfusion of Nonautologous Red Blood Cells into Peripheral Vein, Percutaneous Approach (ICD-10-PCS; 2021-05-11)
PROC: XW033E5 Introduction of Remdesivir Anti-infective into Peripheral Vein, Percutaneous Approach, New Technology Group 5 (ICD-10-PCS; 2021-05-11)
DX: U07.1 COVID-19 (principal); A41.89 Other specified sepsis; J96.01 Acute respiratory failure with hypoxia; J12.82 Pneumonia due to coronavirus disease 2019; N17.0 Acute kidney failure with tubular necrosis; R65.21 Severe sepsis with septic shock; I21.A1 Myocardial infarction type 2; D62 Acute posthemorrhagic anemia; E87.1 Hypo-osmolality and hyponatremia; Z66 Do not resuscitate; D89.839 Cytokine release syndrome, grade unspecified; E87.8 Other disorders of electrolyte and fluid balance, not elsewhere classified; E88.09 Other disorders of plasma-protein metabolism, not elsewhere classified; R79.82 Elevated C-reactive protein (CRP); E66.01 Morbid (severe) obesity due to excess calories; E11.65 Type 2 diabetes mellitus with hyperglycemia; E78.5 Hyperlipidemia, unspecified; E78.00 Pure hypercholesterolemia, unspecified; J98.2 Interstitial emphysema; E87.6 Hypokalemia; Z90.49 Acquired absence of other specified parts of digestive tract; Z68.30 Body mass index [BMI] 30.0-30.9, adult
CPT/HCPCS: 36415; 36569; 36600; 71045; 80048; 80053; 80061; 80202; 80307; 81001; 82270; 82306; 82728; 82805; 82962; 83036; 83605; 83615; 83735; 83880; 84132; 84443; 84484; 84550; 85007; 85025; 85027; 85379; 85610; 85730; 86141; 86850; 86900; 86901; 86920; 87040; 87070; 87081; 87086; 87205; 87426; 93005; 93306; 94002; 94003; 94640; 96374; 99291; G0378; J0696; J1100; J1815; J2250; J2543; J2704; J3480; J3490; J7060; P9047